=== PATIENT | male | born 1945 | race Caucasian/White ===

== ENCOUNTER 2017-07-12 12:07 | Emergency (ER) | payer OTHER ==
[2017-07-12] MEDS: CEPHALEXIN 500 MG CAP PO (14:21)
[2017-07-12] MEDS: DIPHTH/TET/ACEL PERTUSS (ADULT) 0.5 ML VIAL IM* (14:22)
== END 2017-07-12 15:02 | disposition home or self-care (01) ==
LOC: FTE 12:07
DX: S80.811A Abrasion, right lower leg, initial encounter (principal); I10 Essential (primary) hypertension; E11.9 Type 2 diabetes mellitus without complications; X58.XXXA Exposure to other specified factors, initial encounter; Y92.9 Unspecified place or not applicable; Z23 Encounter for immunization; Z79.4 Long term (current) use of insulin; Z87.891 Personal history of nicotine dependence; Z79.82 Long term (current) use of aspirin
CPT/HCPCS: 90471; 90715; 99283-25

== ENCOUNTER 2018-06-16 13:01 | Inpatient (IN) | payer OTHER ==
[2018-06-16 14:35] LABS: ADD MAN DIFF? NO
[2018-06-16 14:39] LABS: BASOPHILS % 0.7 % (0.0-2.0); EOSINOPHILS # 0.1 10^3/ul (0.0-0.5); EOSINOPHILS % 1.8 % (0.0-7.0); HEMATOCRIT 32.1 % (42.0-52.0); HEMOGLOBIN 10.3 g/dl (14.0-18.0); LYMPHOCYTES # 0.9 10^3/ul (0.8-2.9); LYMPHOCYTES % 16.4 % (15.0-51.0); MEAN CORPUSCULAR HEMOGLOBIN 29.2 pg (29.0-33.0); MEAN CORPUSCULAR HGB CONC 32.1 g/dl (32.0-37.0); MEAN CORPUSCULAR VOLUME 90.9 fl (82.0-101.0); MEAN PLATELET VOLUME 10.8 fl (7.4-10.4); MONOCYTE # 0.6 10^3/ul (0.3-0.9); MONOCYTES % 10.2 % (0.0-11.0); NEUTROPHILS % 70.5 % (39.0-77.0); PLATELET COUNT 154 10^3/UL (140-415); RED BLOOD COUNT 3.53 10^6/ul (4.70-6.10); RED CELL DISTRIBUTION WIDTH 15.3 % (11.5-14.5)
[2018-06-16 14:39] LABS: WHITE BLOOD COUNT 5.7 10^3/ul (4.8-10.8)
[2018-06-16 14:56] LABS: ANION GAP 8 (5-13); BLOOD UREA NITROGEN 19 mg/dl (7-20); CALCIUM 8.8 mg/dl (8.4-10.2); CARBON DIOXIDE 29 mmol/L (21-31); CHLORIDE 102 mmol/L (97-110); CREATININE 1.15 mg/dl (0.61-1.24); GLUCOSE 79 mg/dl (70-220); POTASSIUM 4.1 mmol/L (3.5-5.1); SODIUM 139 mmol/L (135-144)
[2018-06-16] MEDS: VANCOMYCIN 1 GM (PMX) 250 ML IVPB (15:58)
[2018-06-16] MEDS ORDERED: ONDANSETRON 4 MG INJ IV ×2 (16:00→18:00)
[2018-06-16] MEDS ORDERED: ACETAMINOPHEN 325 MG TAB PO ×2 (16:00→18:00)
[2018-06-16] MEDS ORDERED: HYDROCODONE/APAP (5/325) TAB PO (18:00)
[2018-06-16] MEDS: INSULIN ASPART [NOVOLOG] 3 ML PEN SC ×3 (18:00→21:00)
[2018-06-16] MEDS ORDERED: morphine 2 MG INJ IV (18:00)
[2018-06-16] MEDS ORDERED: GLUCOSE GEL 15 GRAM TUBE PO ×4 (18:00→18:30)
[2018-06-16] MEDS ORDERED: GLUCAGON 1 MG INJ IM ×2 (18:00→18:30)
[2018-06-16] MEDS ORDERED: DEXTROSE 50% 50 ML SYRINGE IV ×4 (18:00→18:30)
[2018-06-16] MEDS ORDERED: NACL 0.9% 3 ML SYG IV (18:00)
[2018-06-16] MEDS ORDERED: GLUCOSE GEL 15 GRAM TUBE BUCCAL ×2 (18:00→18:30)
[2018-06-16] MEDS: FUROSEMIDE 40 MG INJ IV (20:05)
[2018-06-16] MEDS: CEFAZOLIN 2 GM/50 ML (PMX) 50 ML IVPB (21:58)
[2018-06-16] MEDS: INSULIN GLARGINE [LANTus] (100 UNITS/ML) SYG SC (22:01)
[2018-06-16] MEDS: ATORVASTATIN 10 MG TAB PO (22:02)
[2018-06-16] MEDS: MIRTAZAPINE 15 MG TAB PO (22:02)
[2018-06-16] MEDS: ALFUZOSIN (SR) 10 MG TAB PO (22:02)
[2018-06-16] MEDS: ZOLPIDEM 5 MG TAB PO (22:39)
[2018-06-17] MEDS: ACCU-CHEK XX (02:32)
[2018-06-17 05:51] LABS: ADD MAN DIFF? NO
[2018-06-17 05:56] LABS: BASOPHILS % 0.6 % (0.0-2.0); EOSINOPHILS # 0.1 10^3/ul (0.0-0.5); EOSINOPHILS % 1.3 % (0.0-7.0); HEMATOCRIT 34.2 % (42.0-52.0); HEMOGLOBIN 10.8 g/dl (14.0-18.0); LYMPHOCYTES # 0.6 10^3/ul (0.8-2.9); MEAN CORPUSCULAR HEMOGLOBIN 28.3 pg (29.0-33.0); MEAN CORPUSCULAR HGB CONC 31.6 g/dl (32.0-37.0); MEAN CORPUSCULAR VOLUME 89.5 fl (82.0-101.0); MEAN PLATELET VOLUME 10.7 fl (7.4-10.4); MONOCYTE # 0.5 10^3/ul (0.3-0.9); MONOCYTES % 9.4 % (0.0-11.0); NEUTROPHIL # 4.1 10^3/ul (1.6-7.5); NEUTROPHILS % 76.5 % (39.0-77.0); PLATELET COUNT 160 10^3/UL (140-415); RED BLOOD COUNT 3.82 10^6/ul (4.70-6.10); RED CELL DISTRIBUTION WIDTH 15.4 % (11.5-14.5)
[2018-06-17 05:56] LABS: WHITE BLOOD COUNT 5.3 10^3/ul (4.8-10.8)
[2018-06-17 06:19] LABS: ANION GAP 9 (5-13); BLOOD UREA NITROGEN 21 mg/dl (7-20); CALCIUM 8.9 mg/dl (8.4-10.2); CARBON DIOXIDE 28 mmol/L (21-31); CHLORIDE 104 mmol/L (97-110); CREATININE 1.07 mg/dl (0.61-1.24); GLUCOSE 77 mg/dl (70-220); MAGNESIUM 2.1 mg/dl (1.7-2.5); PHOSPHORUS 5.4 mg/dl (2.5-4.9); POTASSIUM 4.1 mmol/L (3.5-5.1); SODIUM 141 mmol/L (135-144)
[2018-06-17] MEDS: FUROSEMIDE 40 MG INJ IV (06:20)
[2018-06-17] MEDS: hydrALAzine 20 MG INJ IV (06:21)
[2018-06-17 06:22] LABS: CHOLESTEROL 116 mg/dl (100-200)
[2018-06-17 06:22] LABS: CHOL/HDL RATIO 1.6 RATIO; HDL CHOLESTEROL 69 mg/dl (31-75); LDL CHOLESTEROL,CALCULATED 35 mg/dl; TRIGLYCERIDES 58 mg/dl (0-149)
[2018-06-17] MEDS: CEFAZOLIN 2 GM/50 ML (PMX) 50 ML IVPB ×3 (07:21→22:31)
[2018-06-17] MEDS: INSULIN ASPART [NOVOLOG] 3 ML PEN SC ×7 (08:00→21:00)
[2018-06-17] MEDS: ESCITALOPRAM 10 MG TAB PO (08:55)
[2018-06-17] MEDS: POTASSIUM CHLORIDE (SR) 8 MEQ CAP PO (08:57)
[2018-06-17] MEDS: ASPIRIN (EC) 81 MG TAB PO (08:57)
[2018-06-17] MEDS: BENAZEPRIL 10 MG TAB PO (08:58)
[2018-06-17] MEDS: AMLODIPINE 5 MG TAB PO (08:58)
[2018-06-17] MEDS: ATENOLOL 50 MG TAB PO (08:59)
[2018-06-17] MEDS: ENOXAPARIN 40 MG/0.4 ML SYG SC (09:00)
[2018-06-17] MEDS: ATORVASTATIN 10 MG TAB PO (21:27)
[2018-06-17] MEDS: MIRTAZAPINE 15 MG TAB PO (21:27)
[2018-06-17] MEDS: ALFUZOSIN (SR) 10 MG TAB PO (21:27)
[2018-06-17] MEDS: INSULIN GLARGINE [LANTus] (100 UNITS/ML) SYG SC (21:30)
[2018-06-18] MEDS: ACCU-CHEK XX (02:00)
[2018-06-18] MEDS: CEFAZOLIN 2 GM/50 ML (PMX) 50 ML IVPB ×3 (05:38→21:25)
[2018-06-18 05:44] LABS: ADD MAN DIFF? NO
[2018-06-18 05:49] LABS: WHITE BLOOD COUNT 5.4 10^3/ul (4.8-10.8)
[2018-06-18 05:49] LABS: BASOPHILS % 0.6 % (0.0-2.0); EOSINOPHILS # 0.2 10^3/ul (0.0-0.5); EOSINOPHILS % 3.1 % (0.0-7.0); HEMATOCRIT 33.9 % (42.0-52.0); LYMPHOCYTES % 18.1 % (15.0-51.0); MEAN CORPUSCULAR HEMOGLOBIN 28.8 pg (29.0-33.0); MEAN CORPUSCULAR HGB CONC 32.4 g/dl (32.0-37.0); MEAN CORPUSCULAR VOLUME 88.7 fl (82.0-101.0); MEAN PLATELET VOLUME 10.6 fl (7.4-10.4); MONOCYTE # 0.6 10^3/ul (0.3-0.9); MONOCYTES % 11.3 % (0.0-11.0); NEUTROPHIL # 3.6 10^3/ul (1.6-7.5); NEUTROPHILS % 66.7 % (39.0-77.0); PLATELET COUNT 168 10^3/UL (140-415); RED BLOOD COUNT 3.82 10^6/ul (4.70-6.10); RED CELL DISTRIBUTION WIDTH 15.2 % (11.5-14.5)
[2018-06-18 06:19] LABS: ANION GAP 8 (5-13); BLOOD UREA NITROGEN 20 mg/dl (7-20); CALCIUM 8.8 mg/dl (8.4-10.2); CARBON DIOXIDE 28 mmol/L (21-31); CHLORIDE 104 mmol/L (97-110); CREATININE 1.05 mg/dl (0.61-1.24); GLUCOSE 107 mg/dl (70-220); MAGNESIUM 2.2 mg/dl (1.7-2.5); PHOSPHORUS 5.2 mg/dl (2.5-4.9); POTASSIUM 3.9 mmol/L (3.5-5.1); SODIUM 140 mmol/L (135-144)
[2018-06-18] MEDS: INSULIN ASPART [NOVOLOG] 3 ML PEN SC ×7 (07:42→20:43)
[2018-06-18] MEDS: AMLODIPINE 5 MG TAB PO (08:13)
[2018-06-18] MEDS: BENAZEPRIL 10 MG TAB PO (08:13)
[2018-06-18] MEDS: ASPIRIN (EC) 81 MG TAB PO (08:13)
[2018-06-18] MEDS: FUROSEMIDE 40 MG INJ IV (08:13)
[2018-06-18] MEDS: ESCITALOPRAM 10 MG TAB PO (08:13)
[2018-06-18] MEDS: POTASSIUM CHLORIDE (SR) 8 MEQ CAP PO (08:13)
[2018-06-18] MEDS: ENOXAPARIN 40 MG/0.4 ML SYG SC (08:16)
[2018-06-18] MEDS ORDERED: DOCUSATE SODIUM 100 MG CAP PO (13:30)
[2018-06-18] MEDS: LACTOBACILLUS RHAMNOSUS CAP PO ×2 (14:16→20:42)
[2018-06-18] MEDS: ATORVASTATIN 10 MG TAB PO (20:42)
[2018-06-18] MEDS: MIRTAZAPINE 15 MG TAB PO (20:42)
[2018-06-18] MEDS: ALFUZOSIN (SR) 10 MG TAB PO (20:42)
[2018-06-18] MEDS: INSULIN GLARGINE [LANTus] (100 UNITS/ML) SYG SC (20:51)
[2018-06-19] MEDS: ACCU-CHEK XX (01:00)
[2018-06-19] MEDS: CEFAZOLIN 2 GM/50 ML (PMX) 50 ML IVPB ×2 (05:21→13:32)
[2018-06-19 06:38] LABS: ADD MAN DIFF? NO
[2018-06-19 07:06] LABS: BASOPHILS % 0.6 % (0.0-2.0); EOSINOPHILS # 0.2 10^3/ul (0.0-0.5); EOSINOPHILS % 3.7 % (0.0-7.0); HEMATOCRIT 33.6 % (42.0-52.0); HEMOGLOBIN 10.9 g/dl (14.0-18.0); LYMPHOCYTES % 19.9 % (15.0-51.0); MEAN CORPUSCULAR HEMOGLOBIN 28.9 pg (29.0-33.0); MEAN CORPUSCULAR HGB CONC 32.4 g/dl (32.0-37.0); MEAN CORPUSCULAR VOLUME 89.1 fl (82.0-101.0); MEAN PLATELET VOLUME 11.5 fl (7.4-10.4); MONOCYTE # 0.6 10^3/ul (0.3-0.9); MONOCYTES % 11.6 % (0.0-11.0); NEUTROPHIL # 3.2 10^3/ul (1.6-7.5); PLATELET COUNT 175 10^3/UL (140-415); RED BLOOD COUNT 3.77 10^6/ul (4.70-6.10)
[2018-06-19 07:06] LABS: WHITE BLOOD COUNT 4.9 10^3/ul (4.8-10.8)
[2018-06-19 07:23] LABS: MAGNESIUM 2.2 mg/dl (1.7-2.5)
[2018-06-19 07:23] LABS: PHOSPHORUS 4.6 mg/dl (2.5-4.9)
[2018-06-19 07:24] LABS: ALANINE AMINOTRANSFERASE 20 IU/L (13-69); ALBUMIN 3.6 g/dl (3.3-4.9); ALBUMIN/GLOBULIN RATIO 1.12; ALKALINE PHOSPHATASE 78 IU/L (42-121); ANION GAP 10 (5-13); ASPARTATE AMINO TRANSFERASE 30 IU/L (15-46); BILIRUBIN,INDIRECT 0.4 mg/dl (0-1.1); BILIRUBIN,TOTAL 0.4 mg/dl (0.2-1.3); BLOOD UREA NITROGEN 20 mg/dl (7-20); CALCIUM 8.9 mg/dl (8.4-10.2); CARBON DIOXIDE 28 mmol/L (21-31); CHLORIDE 102 mmol/L (97-110); CREATININE 0.94 mg/dl (0.61-1.24); GLUCOSE 105 mg/dl (70-220); POTASSIUM 3.8 mmol/L (3.5-5.1); SODIUM 140 mmol/L (135-144); TOTAL PROTEIN 6.8 g/dl (6.1-8.1)
[2018-06-19 07:41] LABS: FREE T4 (FREE THYROXINE) 1.24 ng/dl (0.78-2.44)
[2018-06-19] MEDS: INSULIN ASPART [NOVOLOG] 3 ML PEN SC ×6 (07:42→17:21)
[2018-06-19 07:54] LABS: THYROID STIMULATING HORMONE 0.584 MIU/L (0.465-4.680)
[2018-06-19 07:55] LABS: TRIIODOTHYRONINE 1.03 ng/ml (0.97-1.69)
[2018-06-19] MEDS: ARTIFICIAL TEARS 15 ML OPH BOTH EYES ×3 (08:05→17:21)
[2018-06-19] MEDS: BENAZEPRIL 20 MG TAB PO (08:06)
[2018-06-19] MEDS: ASPIRIN (EC) 81 MG TAB PO (08:06)
[2018-06-19] MEDS: LACTOBACILLUS RHAMNOSUS CAP PO (08:06)
[2018-06-19] MEDS: FUROSEMIDE 40 MG INJ IV (08:06)
[2018-06-19] MEDS: ESCITALOPRAM 10 MG TAB PO (08:06)
[2018-06-19] MEDS: POTASSIUM CHLORIDE (SR) 8 MEQ CAP PO (08:06)
[2018-06-19] MEDS: ENOXAPARIN 40 MG/0.4 ML SYG SC (08:10)
[2018-06-19] MEDS ORDERED: NIFEdipine (XL) 60 MG TAB PO (21:00)
[2018-06-19] MEDS ORDERED: TRIMETHOPRIM/SULFAMETHOX (DS) TAB PO (21:00)
[2018-06-19] MEDS ORDERED: CEFAZOLIN 2 GM/50 ML (PMX) 50 ML IVPB (22:00)
[2018-06-20] MEDS ORDERED: THIAMINE 100 MG TAB PO (09:00)
[2018-06-20] MEDS ORDERED: FUROSEMIDE 40 MG TAB PO (09:00)
== END 2018-06-19 19:10 | disposition home or self-care (01) | DRG 603 ==
LOC: 6WM 15:48 → E/R 13:01
DX: L03.115 Cellulitis of right lower limb (principal); Z68.41 Body mass index [BMI] 40.0-44.9, adult; I27.20 Pulmonary hypertension, unspecified; E66.01 Morbid (severe) obesity due to excess calories; I11.0 Hypertensive heart disease with heart failure; I50.9 Heart failure, unspecified; E11.9 Type 2 diabetes mellitus without complications; R00.1 Bradycardia, unspecified; D63.8 Anemia in other chronic diseases classified elsewhere; E78.5 Hyperlipidemia, unspecified; F32.9 Major depressive disorder, single episode, unspecified; I89.0 Lymphedema, not elsewhere classified; N40.0 Benign prostatic hyperplasia without lower urinary tract symptoms; G47.33 Obstructive sleep apnea (adult) (pediatric); Z79.4 Long term (current) use of insulin; Z79.82 Long term (current) use of aspirin; Z87.891 Personal history of nicotine dependence
CPT/HCPCS: 80048; 80053; 80061; 82962; 83036; 83735; 84100; 84439; 84443; 84480; 85025; 93005; 93306; 93970; 94660; 99285-25

== ENCOUNTER 2018-10-05 10:55 | Emergency (ER) | payer OTHER ==
[2018-10-05] MEDS: MECLIZINE 12.5 MG TAB PO (12:59)
[2018-10-05] MEDS: SOD CHLORIDE 0.9% 500 ML IV (13:00)
[2018-10-05 13:07] LABS: ADD MAN DIFF? NO
[2018-10-05 13:10] LABS: BASOPHILS % 0.6 % (0.0-2.0); EOSINOPHILS # 0.1 10^3/ul (0.0-0.5); EOSINOPHILS % 2.2 % (0.0-7.0); HEMATOCRIT 33.1 % (42.0-52.0); HEMOGLOBIN 10.7 g/dl (14.0-18.0); LYMPHOCYTES # 0.8 10^3/ul (0.8-2.9); LYMPHOCYTES % 11.8 % (15.0-51.0); MEAN CORPUSCULAR HEMOGLOBIN 29.3 pg (29.0-33.0); MEAN CORPUSCULAR HGB CONC 32.3 g/dl (32.0-37.0); MEAN CORPUSCULAR VOLUME 90.7 fl (82.0-101.0); MEAN PLATELET VOLUME 11.2 fl (7.4-10.4); MONOCYTE # 0.5 10^3/ul (0.3-0.9); MONOCYTES % 7.1 % (0.0-11.0); PLATELET COUNT 181 10^3/UL (140-415); RED BLOOD COUNT 3.65 10^6/ul (4.70-6.10); RED CELL DISTRIBUTION WIDTH 15.2 % (11.5-14.5)
[2018-10-05 13:10] LABS: WHITE BLOOD COUNT 6.4 10^3/ul (4.8-10.8)
[2018-10-05 13:17] LABS: ANION GAP 8 (5-13); BLOOD UREA NITROGEN 17 mg/dl (7-20); CALCIUM 8.6 mg/dl (8.4-10.2); CARBON DIOXIDE 27 mmol/L (21-31); CHLORIDE 104 mmol/L (97-110); CREATININE 0.89 mg/dl (0.61-1.24); GLUCOSE 189 mg/dl (70-220); POTASSIUM 4.3 mmol/L (3.5-5.1); SODIUM 139 mmol/L (135-144)
[2018-10-05 13:28] LABS: TROPONIN-I < 0.012 ng/ml (0.000-0.120)
== END 2018-10-05 15:15 | disposition home or self-care (01) ==
LOC: E/R 10:55
DX: R42 Dizziness and giddiness (principal); I10 Essential (primary) hypertension; E11.9 Type 2 diabetes mellitus without complications; Z79.4 Long term (current) use of insulin
CPT/HCPCS: 36415; 71045; 80048; 84484; 85025; 93005; 99285-25